=== PATIENT | female | born 1980 | race African-American/Black ===

== ENCOUNTER 2016-08-09 11:07 | Outpatient (CLI) | payer OTHER, MEDICAID | END 2016-08-09 11:08 | disposition home or self-care (01) | DX: L29.8 Other pruritus (principal) ==

== ENCOUNTER 2016-10-11 13:17 | Emergency (ER) | payer OTHER, MEDICAID ==
[2016-10-11] MEDS ORDERED: PROPARACAINE 0.5% OPHTH DROPS 15 ML ONE (14:09)
[2016-10-11] MEDS ORDERED: oxyCOD/ACETAMIN 5 MG/325 MG TABLET PO STA (15:04)
[2016-10-11] MEDS ORDERED: oxyCOD/ACETAMIN 5 MG/325 MG TABLET PO ONE (15:06)
== END 2016-10-11 15:12 | disposition home or self-care (01) ==
DX: H54.11 Blindness, right eye, low vision left eye (principal); H18.50 Unspecified hereditary corneal dystrophies; T86.840 Corneal transplant rejection; Y83.4 Other reconstructive surgery as the cause of abnormal reaction of the patient, or of later complication, without mention of misadventure at the time of the procedure; S05.92XA Unspecified injury of left eye and orbit, initial encounter; W20.8XXA Other cause of strike by thrown, projected or falling object, initial encounter
CPT/HCPCS: 99282; 99283; A9270; J3490

== ENCOUNTER 2017-10-07 12:51 | Emergency (ER) | payer MEDICAID, OTHER ==
[2017-10-07 13:22] LABS: BILIRUBIN,URINE NEGATIVE (NEGATIVE); GLUCOSE, URINE (UA) NEGATIVE (NEGATIVE); KETONES,URINE (UA) NEGATIVE (NEGATIVE); LEUKOCYTE ESTERASE, URINE NEGATIVE (NEGATIVE); NITRITE,URINE NEGATIVE (NEGATIVE); OCCULT BLOOD,URINE NEGATIVE (NEGATIVE); PROTEIN,URINE NEGATIVE (NEGATIVE); UROBILINOGEN,URINE 0.2 (NORMAL) E.U./dL (NORMAL)
[2017-10-07 13:23] LABS: CLARITY,URINE CLEAR (CLEAR); HCG UR QUAL NEGATIVE
[2017-10-07 13:27] LABS: BASOPHILS # (AUTO) 0.1 10^3/uL (0.0-0.1); BASOPHILS % (AUTO) 1.1 %; EOSINOPHILS # (AUTO) 0.3 10^3/uL (0.0-0.7); EOSINOPHILS % (AUTO) 5.7 %; HGB - HEMOGLOBIN 13.6 g/dL (12.0-16.0); LYMPHOCYTES # (AUTO) 2.5 10^3/uL (1.5-3.5); MEAN CORPUSCULAR HEMOGLOBIN 30.3 pg (27.0-31.0); MEAN CORPUSCULAR HGB CONC 33.7 g/dL (32.0-36.0); MEAN CORPUSCULAR VOLUME 89.8 fL (81.0-99.0); MEAN PLATELET VOLUME 7.7 fL (7.9-10.8); MONOCYTES # (AUTO) 0.7 10^3/uL (0.0-1.0); MONOCYTES % (AUTO) 11.7 %; NEUTROPHILS # (AUTO) 2.1 10^3/uL (1.5-6.6); NEUTROPHILS % (AUTO) 36.5 %; PLT - PLATELET COUNT 352 10^3/uL (130-450); RED CELL DISTRIBUTION WIDTH 13.7 % (12.0-15.0); WHITE BLOOD COUNT 5.7 x10^3/uL (4.8-10.8)
--- NOTE | 2017-10-07 13:30 | ED Physician Documentation ---
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 No: Fever, Vomiting, Diarrhea, Constipation, Dysuria, Hematuria Similar symptoms before: Has not had sx before Recently seen: Not recently seen - Additional information Additional information: has asthma and is using her inhalers at home. Review of Systems Ten Systems: 10 systems reviewed and negative Constitutional: denies: Fever GI: denies: Vomiting, Diarrhea, Hematemesis, Bloody / black stool : reports: Frequency. denies: Dysuria, Hesitancy, Discharge, Now EGA Skin: denies: Rash Musculoskeletal: denies: Neck pain, Back pain Neurologic: denies: Headache PD PAST MEDICAL HISTORY - Past Medical History Past Medical History: Yes Respiratory: Asthma - Past Surgical History Past Surgical History: Yes - Present Medications Home Medications: Ambulatory Orders Medication Instructions Recorded Confirmed Albuterol [Ventolin Hfa] 2 puffs INH Q4H PRN #1 inhaler 06/02/13 10/11/16 Cetirizine [ZyrTEC] 10 mg PO ONCE 04/27/16 10/11/16 Beclomethasone Dipropionate [Qvar] 1 inh PO DAILY 10/11/16 10/11/16 Hydrocodone/Acetaminophen 1 - 2 each PO Q6H PRN #10 tablet 10/07/17 [Hydrocodon-Acetaminophen 5-325] Ondansetron Odt [Zofran] 4 mg TL Q6H PRN #10 tablet 10/07/17 - Allergies Allergies/Adverse Reactions: Allergies Allergy/AdvReac Type Severity Reaction Status Date / Time No Known Drug Allergies Allergy Verified 04/27/16 21:47 - Social History Does the pt smoke?: No Smoking Status: Never smoker Does the pt drink ETOH?: No Does the pt have substance abuse?: No - Immunizations Immunizations are current?: Yes - POLST Patient has POLST: No PD ED PE NORMAL - Vitals Vital signs reviewed: Yes - General General: Alert and oriented X 3, No acute distress - HEENT HEENT: PERRL, Ears normal, Moist mucous membranes, Pharynx benign - Neck Neck: Supple, no meningeal sign - Cardiac Cardiac: RRR, Strong equal pulses - Respiratory Respiratory: No respiratory distress, Clear bilaterally - Abdomen Abdomen: Soft, Non distended, Other (mild, mid R abd pain, no peritoneal signs. neg johnson's sign.) - Back Back: No CVA TTP - Derm Derm: Warm and dry - Neuro Neuro: Alert and oriented X 3 - Psych Psych: Normal mood, Normal affect Results - Vitals Vitals: Vital Signs - 24 hr 10/07/17 10/07/17 13:00 15:08 Temperature 37.0 C Heart Rate 82 69 Respiratory 18 16 Rate Blood Pressure 163/122 H 147/90 H O2 Saturation 100 100 Oxygen O2 Source Room air - Labs Labs: Laboratory Tests 10/07/17 10/07/17 10/07/17 13:13 13:22 13:22 WBC 5.7 RBC 4.50 Hgb 13.6 Hct 40.4 MCV 89.8 MCH 30.3 MCHC 33.7 RDW 13.7 Plt Count 352 MPV 7.7 L Neut # 2.1 Lymph # 2.5 [place] # 0.7 Eos # 0.3 Baso # 0.1 Absolute Nucleated RBC 0.00 Nucleated RBC % 0.0 Sodium 137 Potassium 3.6 Chloride 101 Carbon Dioxide 28 Anion Gap 8.0 BUN 6 Creatinine 0.5 Estimated GFR (MDRD) 170 Glucose 84 Calcium 9.0 Total Bilirubin 0.5 AST 21 ALT 27 Alkaline Phosphatase 57 Total Protein 8.7 H Albumin 4.2 Globulin 4.5 H Albumin/Globulin Ratio 0.9 L Lipase 19 L Urine Color YELLOW Urine Clarity CLEAR Urine pH 7.0 Ur Specific [place] 1.015 Urine Protein NEGATIVE Urine Glucose (UA) NEGATIVE Urine Ketones NEGATIVE Urine Occult Blood NEGATIVE Urine Nitrite NEGATIVE Urine Bilirubin NEGATIVE Urine Urobilinogen 0.2 (NORMAL) Ur Leukocyte Esterase NEGATIVE Ur Microscopic Review NOT INDICATED Urine Culture Comments NOT INDICATED Urine HCG, Qual NEGATIVE - Rads (name of study) CT abd/pelvis Radiology: Prelim report reviewed, EMP read contemporaneously, See rad report ( no acute abnormalities) PD MEDICAL DECISION MAKING - ED course Complexity details: reviewed results, re-evaluated patient, considered differential, d/w patient, d/w family ED course: Patient is a 37-year-old female who presents to the emergency department with right mid abdominal pain of unclear etiology. No acute findings on CT scan, laboratory testing or urinalysis. Declines pain medication here. Will trial on pain medicine for a few days and see how this progresses. No evidence of cholecystitis, appendicitis, ureteral stone, diverticulitis, bowel obstruction. No vaginal discharge or bleeding. Declines a pelvic exam. Patient counseled regarding signs and symptoms for which I believe and urgent re-evaluation would be necessary. Patient with good understanding of and agreement to plan and is comfortable going home at this time This document was made in part using voice recognition software. While efforts are made to proofread this document, sound alike and grammatical errors may occur. Departure - Departure Disposition: Home, Self Care Clinical Impression: Abdominal pain Qualifiers: Abdominal location: unspecified location Qualified Code(s): R10.9 - Unspecified abdominal pain Condition: Good Instructions: ED Abdominal Pain Unkn Cause Follow-Up: Frank Negrete MD [Primary Care Provider] - Within 3 Days Prescriptions: Hydrocodone/Acetaminophen [Hydrocodon-Acetaminophen 5-325] 1 - 2 each PO Q6H PRN #10 tablet PRN Reason: pain Ondansetron Odt [Zofran] 4 mg TL Q6H PRN #10 tablet PRN Reason: Nausea / Vomiting Comments: The cause of your symptoms is unclear today. Return if you worsen.Your labs and CT scan are normal today. Do not drink alcohol or drive while on narcotic pain medicine. Note that many narcotic pain relievers also contain tylenol/acetaminophen. Please ensure that your total dose of acetaminophen from all sources does not exceed 3 grams (3000mg) per day. You may constipated on this medication, take a stool softener such as "Colace" twice a day while you are on it. Also recommend a vqfl-[id number]-gtghznd laxative such as senna or MiraLAX any day that you do not have a bowel movement. If you received narcotic pain medication in the emergency department, do not drive or operate machinery for the next 24 hours. Discharge Date/Time: 10/07/17 15:59
[2017-10-07 13:40] LABS: ALBUMIN 4.2 g/dL (3.2-5.5); ALBUMIN/GLOBULIN RATIO 0.9 (1.0-2.2); BILIRUBIN,TOTAL 0.5 mg/dL (0.2-1.0); CREATININE 0.5 mg/dL (0.4-1.0); TOTAL PROTEIN 8.7 g/dL (6.7-8.2)
[2017-10-07] MEDS ORDERED: IOPAMIDOL-300 100 ML VIAL ONE (14:01)
[2017-10-07] MEDS ORDERED: IOPAMIDOL-300 100 ML VIAL IVP ONE (14:49)
[2017-10-07 15:09] VITALS: BP 147/90
--- NOTE | 2017-10-07 15:31 | CT Report ---
EXAM: CT ABDOMEN AND PELVIS EXAM DATE: 10/07/2017 02:48 PM. CLINICAL HISTORY: RLQ, RUQ abd pain. COMPARISONS: None. TECHNIQUE: Routine helical CT imaging was performed through the abdomen and pelvis. IV contrast: ISOV UE 300 100mL. Enteric contrast: No. Reconstructions: Coronal and sagittal. In accordance with CT protocol optimization, one or more of the following dose reduction techniques w ere utilized for this exam: automated exposure control, adjustment of mA and/or KV based on patient s ize, or use of iterative reconstructive technique. FINDINGS: Lung Bases: Unremarkable. Liver: Normal contour. No masses. Gallbladder/Bile Ducts: Unremarkable. Spleen: Normal. Pancreas: Normal. Adrenal Glands: Normal. Kidneys: No masses or hydronephrosis. No urologic stones. Symmetric enhancement. Peritoneal Cavity/Bowel: No free fluid, free air or adenopathy. No masses or acute inflammatory proce ss. The appendix is well visualized and has a normal CT appearance. Pelvic Organs: The bladder is mostly decompressed and therefore not well evaluated. Pelvic organs ap pear otherwise unremarkable. Vasculature: No aneurysms or other significant abnormality. Bones: No bone lesions. IMPRESSION: There are no CT findings to suggest a cause of symptoms [facility] Referring Provider Line: [phone] SITE ID: [id number]
== END 2017-10-07 15:59 | disposition home or self-care (01) ==
LOC: ED 12:51
DX: R10.9 Unspecified abdominal pain (principal)
CPT/HCPCS: 36415; 74177; 80053; 81003; 81025; 83690; 85025; 99283; 99284; Q9967; 81001; 87086

== ENCOUNTER 2018-04-04 19:52 | Emergency (ER) | payer MEDICAID ==
[2018-04-04] MEDS ORDERED: IPRATROPIUM/ALBUTEROL 3 ML NEB INH STA (20:59)
--- NOTE | 2018-04-04 21:35 | ED Physician Documentation ---
PD HPI DYSPNEA - Stated complaint Stated Complaint: SOA/ASTHMA - Chief complaint Chief Complaint: Resp - History obtained from History obtained from: Patient - History of Present Illness Timing - onset: Today Timing - details: Gradual onset Worsened by: Coughing Associated symptoms: Fever (Tmax 101-102), Cough Similar symptoms before: Has not had sx before Recently seen: Not recently seen - Additional information Additional information: c/o wheezing, sore throat, cough, sinus congestion, fever x 1-2 days Review of Systems Constitutional: reports: Fever, Chills, Sweats Nose: reports: Rhinorrhea / runny nose, Congestion, Sinus pressure / pain Throat: reports: Sore throat Cardiac: reports: Reviewed and negative Respiratory: reports: Cough GI: reports: Reviewed and negative PD PAST MEDICAL HISTORY - Past Medical History Past Medical History: Yes Respiratory: Asthma - Past Surgical History Past Surgical History: Yes - Present Medications Home Medications: Ambulatory Orders Medication Instructions Recorded Confirmed Albuterol [Ventolin Hfa] 2 puffs INH Q4H PRN #1 inhaler 06/02/13 10/11/16 Cetirizine [ZyrTEC] 10 mg PO ONCE 04/27/16 10/11/16 Beclomethasone Dipropionate [Qvar] 1 inh PO DAILY 10/11/16 10/11/16 Hydrocodone/Acetaminophen 1 - 2 each PO Q6H PRN #10 tablet 10/07/17 [Hydrocodon-Acetaminophen 5-325] Ondansetron Odt [Zofran] 4 mg TL Q6H PRN #10 tablet 10/07/17 Albuterol Sulf [Ventolin Hfa 1 - 2 puffs INH Q4HR PRN #1 inhaler 04/04/18 Inhaler] Azithromycin [Zithromax] 250 mg PO DAILY #4 tablet 04/04/18 predniSONE [Prednisone] 40 mg PO DAILY #8 tablet 04/04/18 - Allergies Allergies/Adverse Reactions: Allergies Allergy/AdvReac Type Severity Reaction Status Date / Time No Known Drug Allergies Allergy Verified 04/04/18 20:03 - Social History Does the pt smoke?: No Smoking Status: Never smoker Does the pt drink ETOH?: No Does the pt have substance abuse?: No - Immunizations Immunizations are current?: Yes - POLST Patient has POLST: No PD ED PE NORMAL - Vitals Vital signs reviewed: Yes - General General: Alert and oriented X 3, No acute distress, Well developed/nourished - HEENT HEENT: Ears normal, Moist mucous membranes, Pharynx benign - Neck Neck: Supple, no meningeal sign - Cardiac Cardiac: RRR, No murmur - Respiratory Respiratory: No respiratory distress, Clear bilaterally - Abdomen Abdomen: Soft, Non tender Results - Vitals Vitals: Oxygen O2 Source Room air PD MEDICAL DECISION MAKING - ED course Complexity details: reviewed results, re-evaluated patient, considered ikee marley, d/w patient - Sepsis Event Vital Signs: Oxygen O2 Source Room air Departure - Departure Disposition: Home, Self Care Clinical Impression: Acute asthma exacerbation, Bronchitis, Sinusitis Condition: Good Instructions: ED Reactive Airway Disease, ED Upper Resp Infec Abx Tx, ED Inhaler Use, ED Sinusitis Abx Tx Follow-Up: Frank Negrete MD [Primary Care Provider] - Prescriptions: Albuterol Sulf [Ventolin Hfa Inhaler] 1 - 2 puffs INH Q4HR PRN #1 inhaler PRN Reason: Shortness Of Air/Wheezing Azithromycin [Zithromax] 250 mg PO DAILY #4 tablet predniSONE [Prednisone] 40 mg PO DAILY #8 tablet Forms: Activity restrictions Discharge Date/Time: 04/04/18 23:21
[2018-04-04] MEDS ORDERED: ALBUTEROL NEB 2.5 MG/3 ML INH STA (21:49)
[2018-04-04] MEDS ORDERED: AZITHROMYCIN 250 MG TABLET PO STA (21:50)
[2018-04-04] MEDS ORDERED: predniSONE 20 MG TABLET PO STA (21:50)
[2018-04-04 23:21] VITALS: BP 120/86
== END 2018-04-04 23:21 | disposition home or self-care (01) ==
LOC: ED 19:52
DX: J45.901 Unspecified asthma with (acute) exacerbation (principal); J20.9 Acute bronchitis, unspecified; J01.90 Acute sinusitis, unspecified
CPT/HCPCS: 94640; 94664; 99283; A9270; J7512

== ENCOUNTER 2018-10-19 16:06 | Emergency (ER) | payer MEDICAID ==
[2018-10-19] MEDS ORDERED: LIDOCAINE-EPINEPH-TETRACAINE 3 ML SYRINGE TOP STA (16:27)
--- NOTE | 2018-10-19 16:31 | ED Physician Documentation ---
History of Present Illness - Stated complaint Stated Complaint: R FOOT PX/BUMP/NAUSEA - Chief complaint Chief Complaint: General - History obtained from History obtained from: Patient - History of Present Illness Timing: How many days ago (2-3) Pain level max: 5 Pain level now: 4 - Additonal information Additional information: 38-year-old female presents to the emergency department stating that she noticed a small swelling/bump to the right foot a few days ago. Increased in size today. Came for evaluation. No fevers. No vomiting. 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 Nothing makes it better or worse Review of Systems Constitutional: denies: Fever, Chills GI: denies: Vomiting, Diarrhea : denies: Dysuria Skin: denies: Rash Musculoskeletal: denies: Neck pain, Back pain Neurologic: denies: Headache PD PAST MEDICAL HISTORY - Past Medical History Past Medical History: Yes Respiratory: Asthma - Past Surgical History Past Surgical History: Yes - Present Medications Home Medications: Ambulatory Orders Medication Instructions Recorded Confirmed Albuterol [Ventolin Hfa] 2 puffs INH Q4H PRN #1 inhaler 06/02/13 10/11/16 Beclomethasone Dipropionate [Qvar] 1 inh PO DAILY 10/11/16 10/11/16 - Allergies Allergies/Adverse Reactions: Allergies Allergy/AdvReac Type Severity Reaction Status Date / Time No Known Drug Allergies Allergy Verified 10/19/18 16:12 - Living Situation Living Situation: reports: With family Living Arrangement: reports: At home - Social History Does the pt smoke?: No Smoking Status: Never smoker Does the pt drink ETOH?: No Does the pt have substance abuse?: No - Immunizations Immunizations are current?: Yes - POLST Patient has POLST: No PD ED PE NORMAL - Vitals Vital signs reviewed: Yes - General General: Alert and oriented X 3, No acute distress, Well developed/nourished - HEENT HEENT: Moist mucous membranes - Neck Neck: Supple, no meningeal sign - Derm Derm: Warm and dry - Neuro Neuro: Alert and oriented X 3 - Psych Psych: Normal mood, Normal affect PD ED PE EXPANDED - Extremities Feet visual: 1 - swelling (cystic lesion, 0.5x1.5cm. no skin changes. no flow on US. NVI) Results - Vitals Vitals: Vital Signs - 24 hr 10/19/18 16:10 Temperature 36.1 C L Heart Rate 69 Respiratory 18 Rate Blood Pressure 133/91 H O2 Saturation 100 Oxygen O2 Source Room air PD MEDICAL DECISION MAKING - ED course Complexity details: considered differential, d/w patient ED course: Bedside ultrasound reveals a small cystic structure with no vascular flow. LET was applied and then an 18-gauge needle inserted and clear fluid removed. Possible that this is a subcutaneous friction blister versus seroma. We will have her follow-up with her doctor for further care. Will pad her shoes when she is at work as she does walk frequently. No evidence of infection. Patient counseled regarding signs and symptoms for which I believe and urgent re- evaluation would be necessary. Patient with good understanding of and agreement to plan and is comfortable going home at this time This document was made in part using voice recognition software. While efforts are made to proofread this document, sound alike and grammatical errors may occur. Departure - Departure Disposition: 01 Home, Self Care Clinical Impression: Seroma Condition: Good Instructions: ED Blister Follow-Up: Gwen Rome MD [Primary Care Provider] - Within 1 week Comments: There is clear fluid within this structure today. There is no infection. It is not related to a blood vessel. I would recommend padding this area when you wear a shoe and ensure is not rubbing at the site. Return if you worsen
[2018-10-19 17:07] VITALS: BP 136/93
== END 2018-10-19 17:06 | disposition home or self-care (01) ==
LOC: ED 16:06
DX: L98.8 Other specified disorders of the skin and subcutaneous tissue (principal)
CPT/HCPCS: 10140; 99282; 99283

== ENCOUNTER 2019-06-18 17:05 | Emergency (ER) | payer BC, MEDICAID ==
[2019-06-18] MEDS ORDERED: CHERRY SYRUP 10 ML UDC PO ONE (18:26)
[2019-06-18] MEDS ORDERED: KETOROLAC 60 MG/2 ML VIAL IM STA (18:26)
[2019-06-18] MEDS ORDERED: DEXAMETHASONE 10 MG/ML VIAL PO STA (18:26)
[2019-06-18] MEDS ORDERED: MELOXICAM 7.5 MG TABLET PO STA (18:40)
--- NOTE | 2019-06-18 19:20 | XRAY Report ---
Reason: cough Procedure Date: 06/18/2019 Accession Number: [id number] / [id number] Procedure: XR - Chest 2 View X-Ray CPT Code: 81458 Final Report FULL RESULT: EXAM: CHEST RADIOGRAPHY EXAM DATE: 06/18/2019 06:40 PM. CLINICAL HISTORY: Cough. COMPARISON: THORACIC SPINE 2 VIEW 07/07/2018 1:35 PM. TECHNIQUE: 2 views. FINDINGS: Lungs/Pleura: No focal opacities evident. No pleural effusion. No pneumothorax. Normal volumes. Mediastinum: Heart and mediastinal contours are unremarkable. Other: None. IMPRESSION: Normal 2-view chest radiography. [facility]
--- NOTE | 2019-06-18 19:24 | ED Physician Documentation ---
History of Present Illness - Stated complaint Stated Complaint: RT BREAST PX - Chief complaint Chief Complaint: General - History obtained from History obtained from: Patient - History of Present Illness Timing: How many weeks ago (4) Pain level max: 8 Pain level now: 8 Improved by: rest Worsened by: palpation - Additonal information Additional information: Right chest wall pain for the past month. Worse over the past 2 weeks. Worse with movement and breathing. Started after an upper respiratory illness. No fevers. Review of Systems Constitutional: denies: Fever, Chills GI: denies: Vomiting, Diarrhea Skin: denies: Rash Musculoskeletal: denies: Neck pain, Back pain Neurologic: denies: Headache PD PAST MEDICAL HISTORY - Past Medical History Past Medical History: Yes Respiratory: Asthma - Past Surgical History Past Surgical History: Yes - Present Medications Home Medications: Ambulatory Orders Medication Instructions Recorded Confirmed Albuterol [Ventolin Hfa] 2 puffs INH Q4H PRN #1 inhaler 06/02/13 10/11/16 Beclomethasone Dipropionate [Qvar] 1 inh PO DAILY 10/11/16 10/11/16 Meloxicam [Mobic] 15 mg PO DAILY PRN #20 tablet 06/18/19 predniSONE [Deltasone] 10 mg PO [id number] #42 tab 06/18/19 - Allergies Allergies/Adverse Reactions: Allergies Allergy/AdvReac Type Severity Reaction Status Date / Time No Known Drug Allergies Allergy Verified 06/18/19 17:25 - Social History Does the pt smoke?: No Smoking Status: Never smoker Does the pt drink ETOH?: No Does the pt have substance abuse?: No - Immunizations Immunizations are current?: Yes - POLST Patient has POLST: No PD ED PE NORMAL - Vitals Vital signs reviewed: Yes - General General: Alert and oriented X 3, No acute distress, Well developed/nourished - HEENT HEENT: PERRL, Moist mucous membranes - Neck Neck: Supple, no meningeal sign - Cardiac Cardiac: RRR, Strong equal pulses - Respiratory Respiratory: No respiratory distress, Clear bilaterally - Abdomen Abdomen: Soft, Non tender, Non distended - Derm Derm: Warm and dry - Extremities Extremities: No edema - Neuro Neuro: Alert and oriented X 3 - Psych Psych: Normal mood, Normal affect - Free text exam Free text exam: Tender palpation across the right anterior chest wall. This is along the costochondral junction. Reproduces her pain. No appreciable masses on breast exam. Appears to have fibrocystic change. No lymphadenopathy. No skin changes. No nipple discharge Results - Vitals Vitals: Vital Signs - 24 hr 06/18/19 06/18/19 17:20 19:28 Temperature 36.9 C Heart Rate 77 67 Respiratory 16 16 Rate Blood Pressure 134/100 H 127/75 O2 Saturation 100 97 Oxygen O2 Source Room air - Rads (name of study) Chest x-ray Radiology: Prelim report reviewed, EMP read contemporaneously, See rad report (No acute abnormality) PD MEDICAL DECISION MAKING - ED course Complexity details: reviewed results, re-evaluated patient, considered differential, d/w patient ED course: Patient is a 39-year-old female who appears to have costochondritis following a viral upper respiratory infection. Will place on anti-inflammatories and steroids for home. She is well-appearing, nontoxic. Afebrile. Declines anything stronger for pain. Patient counseled regarding signs and symptoms for which I believe and urgent re-evaluation would be necessary. Patient with good understanding of and agreement to plan and is comfortable going home at this time This document was made in part using voice recognition software. While efforts a re made to proofread this document, sound alike and grammatical errors may occur. No evidence of acute coronary syndrome or pulmonary embolus. No evidence of breast cancer or abscess. Departure - Departure Disposition: 01 Home, Self Care Clinical Impression: Costochondritis, acute Condition: Good Instructions: ED Chest Pain Costochondritis Follow-Up: Enrique Yanez PA-C [Primary Care Provider] - Within 1 week Prescriptions: Meloxicam [Mobic] 15 mg PO DAILY PRN #20 tablet PRN Reason: pain predniSONE [Deltasone] 10 mg PO [id number] #42 tab Comments: Use the medications as prescribed. Return if you worsen. Follow-up with your doctor for further care. Your x-ray is normal tonight Discharge Date/Time: 06/18/19 19:28
[2019-06-18 19:29] VITALS: BP 127/75
== END 2019-06-18 19:28 | disposition home or self-care (01) ==
LOC: ED 17:05
DX: M94.0 Chondrocostal junction syndrome [Tietze] (principal)
CPT/HCPCS: 71046; 99283; 99284; A9270

== ENCOUNTER 2019-06-30 08:35 | Outpatient (CLI) | payer BC, MEDICAID ==
--- NOTE | 2019-06-30 10:45 | Mammography Report ---
Reason: LUMP IN BREAST, BREAST PAIN RT Procedure Date: 06/30/2019 Accession Number: [id number] / [id number] Procedure: ALIYAH - Diagnostic Dig Bilat CPT Code: Final Report FULL RESULT: EXAM: Diagnostic Dig Bilat, Breast Unilateral Limited DATE: 06/30/2019 9:52 AM CLINICAL HISTORY: Focal right breast pain. Baseline mammogram. COMPARISON: None BILATERAL MAMMOGRAPHY: TECHNIQUE: (B) - Bilateral CC and MLO views were obtained. PARENCHYMAL PATTERN: (A) - The breasts demonstrate scattered fibroglandular densities bilaterally. FINDINGS: There are no suspicious masses, calcifications, or areas of distortion. No mammographic abnormality is seen in the areas of right breast pain. RIGHT BREAST ULTRASOUND: TECHNIQUE: Real-time scanning by the shellfish processing laborer with saved static images reviewed. FINDINGS: Scanning of the right breast upper inner and upper outer quadrants shows no cystic or solid mass, abnormal fluid collection, or other abnormality. IMPRESSION: Negative examination. BI-RADS category 1. RECOMMENDATION: (ANNUAL) - Recommend routine annual screening mammography. Beginning at age 40. Recommend clinical follow-up of breast pain. BI-RADS CATEGORY: (1) - Negative. STANDARD QUALIFYING STATEMENTS: 1. This examination was not reviewed with the aid of Computer-Aided Detection (CAD). 2. A negative or benign imaging report should not preclude biopsy if clinically suspicious findings are present. 3. Dense breasts may obscure an underlying neoplasm. 4. This examination was reviewed with the aid of 3D breast imaging (tomosynthesis).
== END 2019-06-30 08:36 | disposition home or self-care (01) ==
LOC: DI 08:35
PROVIDERS: ATTEND Physician Assistant Medical
DX: N64.4 Mastodynia (principal)
CPT/HCPCS: 76642; 77066

== ENCOUNTER 2019-08-27 18:00 | Outpatient (CLI) | payer OTHER | END 2019-08-27 18:01 | disposition critical access hospital (66) | LOC: EMS 18:00 | PROVIDERS: ATTEND Surgery | DX: M25.562 Pain in left knee (principal); V49.40XA Driver injured in collision with unspecified motor vehicles in traffic accident, initial encounter; Y92.413 State road as the place of occurrence of the external cause | CPT/HCPCS: A0425; A0429 ==

== ENCOUNTER 2019-08-27 18:17 | Emergency (ER) | payer OTHER ==
[2019-08-27 18:24] VITALS: BP 145/100
[2019-08-27] MEDS ORDERED: ACETAMINOPHEN 325 MG TABLET PO STA (18:29)
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
--- NOTE | 2019-08-27 19:17 | XRAY Report ---
Reason: knee inj Procedure Date: 08/27/2019 Accession Number: [id number] / [id number] Procedure: XR - Knee 4 View LT CPT Code: Final Report FULL RESULT: EXAM: LEFT KNEE RADIOGRAPHY EXAM DATE: 08/27/2019 06:56 PM. CLINICAL HISTORY: Knee injury. COMPARISON: None. TECHNIQUE: 4 views. FINDINGS: Bones: Normal. No fractures or bone lesions. Joints: Normal. No effusion. No subluxations. Soft Tissues: Normal. No soft tissue swelling. IMPRESSION: Normal knee radiography. [facility]
== END 2019-08-27 19:47 | disposition home or self-care (01) ==
LOC: EDUNIT# → ED 18:17
DX: S80.02XA Contusion of left knee, initial encounter (principal); V53.5XXA Driver of pick-up truck or van injured in collision with car, pick-up truck or van in traffic accident, initial encounter; Y92.410 Unspecified street and highway as the place of occurrence of the external cause; R03.0 Elevated blood-pressure reading, without diagnosis of hypertension
CPT/HCPCS: 73564; 99283; A9270

== ENCOUNTER 2020-05-04 07:00 | Outpatient (CLI) | payer OTHER | END 2020-05-04 23:59 | LOC: COV 07:00 | PROVIDERS: ATTEND Family Medicine | DX: R05 Cough (principal); R50.9 Fever, unspecified; R06.02 Shortness of breath; M79.10 Myalgia, unspecified site; R53.83 Other fatigue; J02.9 Acute pharyngitis, unspecified; R43.8 Other disturbances of smell and taste; R09.81 Nasal congestion; R11.2 Nausea with vomiting, unspecified; Z20.828 Contact with and (suspected) exposure to other viral communicable diseases ==

== ENCOUNTER 2023-05-05 10:57 | Outpatient (CLI) | payer OTHER ==
--- NOTE | 2023-05-05 12:05 | XRAY Report ---
PROCEDURE: Ankle 3 View RT INDICATIONS: SPRAIN OF UNSPECIFIED LIGAMENT OF RIGHT ANKLE TECHNIQUE: 3 views of the ankle were acquired. COMPARISON: None. FINDINGS: Bones: No fractures or dislocations. Ankle mortise is normally aligned. No suspicious bony lesions . Soft tissues: No tibiotalar joint effusion. Achilles tendon appears normal. IMPRESSION: No visualized acute fracture or dislocation. However, occult injury cannot be excluded. Recommend hayes rt interval imaging follow-up in 7-10 days as clinically indicated for additional evaluation. Reviewed by: Leyla Ortega MD on 05/05/2023 12:04 PM PDT Approved by: Leyla Ortega MD on 05/05/2023 12:04 PM PDT Station ID: [id number]
== END 2023-05-05 10:58 | disposition home or self-care (01) ==
LOC: DI 10:57
PROVIDERS: ATTEND Physician Assistant Medical
DX: S93.401A Sprain of unspecified ligament of right ankle, initial encounter (principal)

== ENCOUNTER 2023-09-02 11:21 | Outpatient (CLI) | payer OTHER ==
--- NOTE | 2023-09-02 20:54 | XRAY Report ---
PROCEDURE: Lumbar Spine 2-3V INDICATIONS: STRAIN OF MUSCLE,FASCIA AND TENDON OF LOWER BACK TECHNIQUE: 3 views of the lumbar spine were acquired. COMPARISON: None. FINDINGS: Bones: 5 [id number] vertebrae are present. There is normal bony alignment. No vertebral body compression fractures. No suspicious bony lesions. Generative changes are likely present at T11-12 w hich are incompletely characterized on this limited view of the thoracic spine. Soft tissues: Overlying bowel gas pattern is normal. No suspicious soft tissue calcifications. IMPRESSION: 1. Normal radiographic appearance of the lumbar spine. 2. Probable degenerative change or posttraumatic change at T11-12. Reviewed by: Lory Karimi MD on 09/02/2023 8:53 PM PST Approved by: Lory Karimi MD on 09/02/2023 8:53 PM PST Station ID: [id number]
--- NOTE | 2023-09-02 20:55 | XRAY Report ---
PROCEDURE: Knee 3V RT INDICATIONS: Contusion of right knee TECHNIQUE: 3 views of the knee(s) were acquired. COMPARISON: None. FINDINGS: Bones: No fractures or dislocations. No suspicious bony lesions. Soft tissues: No knee joint effusion. No suspicious soft tissue calcifications or masses. IMPRESSION: No acute bony abnormality. If there remains a high clinical concern for fracture, including inability to bear weight, consider cross-sectional imaging to exclude an occult fracture. Reviewed by: Lory Karimi MD on 09/02/2023 8:54 PM PST Approved by: Lory Karimi MD on 09/02/2023 8:54 PM PST Station ID: [id number]
--- NOTE | 2023-09-02 20:55 | XRAY Report ---
PROCEDURE: Shoulder 2+V RT INDICATIONS: Right shoulder pain TECHNIQUE: 3 views of the shoulder were acquired. COMPARISON: None. FINDINGS: Bones: No fractures or dislocations. No suspicious bony lesions. Visualized ribs appear intact. Soft tissues: There is mild calcific tendinitis at the rotator cuff insertion. The visualized lungs are within normal limits. IMPRESSION: No acute bony abnormality. Mild calcific tendinitis. Reviewed by: Lory Karimi MD on 09/02/2023 8:53 PM [facility] Approved by: Lory Karimi MD on 09/02/2023 8:53 PM [facility] Station ID: [id number]
== END 2023-09-02 11:22 | disposition home or self-care (01) ==
LOC: DI 11:21
PROVIDERS: ATTEND Family Medicine
DX: M75.31 Calcific tendinitis of right shoulder (principal); S39.012A Strain of muscle, fascia and tendon of lower back, initial encounter; S80.01XA Contusion of right knee, initial encounter